=== PATIENT | female | born 1945 | race Caucasian/White ===

== ENCOUNTER 2022-02-03 18:39 | Emergency (ER) | payer OTHER ==
[~2022-02-03] VITALS: Ht 162.6 cm; Wt 70.3 kg
[2022-02-03 19:28] VITALS: BP_SYST 108
--- NOTE | 2022-02-03 19:30 | NUR ---
PATIENT STATES SHE NOTED SWELLING TO RIGHT LOWER LEG X 5 DAYS. HURTS TO WALK, SWELLING NOTED TO CALF AND ANKLE. NO SWELLING ON LEFT FOOT. NO HISTORY OF CHF.
--- NOTE | 2022-02-03 22:14 | NUR ---
Patient to ER bed 04 to gown for evaluation. Side rails up.
--- NOTE | 2022-02-03 22:45 | NUR ---
NICKOL[facility] RN PT AMB WITH TRIAGE NURSE TO BED #4. REPORT FROM JACQUELYN ROBERTSON. PT C/O RLE SELLING/ PAIN X5 DAYS. GETTING WORSE. NO MEDS AT HOME.
[2022-02-04 00:32] VITALS: BP_SYST 203
--- NOTE | 2022-02-04 00:35 | NUR ---
PT STABLE FOR D/C TO HOME. TO CAR AMB WITH STEADY AND EVEN GAIT WITH ALL PAPERWORK IN HAND. [facility] DR. RAMÍREZ MADE AWARE. PT WILL TAKE HER OWN RX AT HOME
== END 2022-02-04 00:32 | disposition home or self-care (01) ==
LOC: SED 18:39
DX: M19.071 Primary osteoarthritis, right ankle and foot (principal); E11.29 Type 2 diabetes mellitus with other diabetic kidney complication; N28.9 Disorder of kidney and ureter, unspecified; I10 Essential (primary) hypertension; Z79.899 Other long term (current) drug therapy
CPT/HCPCS: 73590-TC; 93971; 99284

== ENCOUNTER 2022-08-19 08:47 | Inpatient (IN) | payer OTHER ==
[~2022-08-19] VITALS: Ht 162.6 cm; Wt 63.5 kg
[2022-08-19 08:50] VITALS: BP_SYST 177
[2022-08-19] MEDS ORDERED: NACL 0.9% 1,000 ML IV ONE (10:00)
[2022-08-19 10:01] LABS: BASOPHILS # (AUTO) 0.1 K/uL (0.0-0.2); BASOPHILS % (AUTO) 0.8 % (0.0-2.0); EOSINOPHILS # (AUTO) 0.2 K/uL (0.0-0.4); EOSINOPHILS % (AUTO) 2.1 % (0.0-4.0); HEMATOCRIT 33.6 % (36-48); HEMOGLOBIN 11.3 g/dL (12.0-16.0); LYMPHOCYTES % (AUTO) 12.3 % (20.5-51.5); MEAN CORPUSCULAR HEMOGLOBIN 31 pg (27-31); MEAN CORPUSCULAR HGB CONC 34 % (32-36); MEAN CORPUSCULAR VOLUME 92 fL (79.0-98.0); MONOCYTES # (AUTO) 0.5 K/uL (0.0-1.0); MONOCYTES % (AUTO) 6.4 % (1.7-9.3); NEUTROPHILS # (AUTO) 6.5 K/uL (1.8-7.7); NEUTROPHILS % (AUTO) 78.4 % (40.0-70.0); PLATELET COUNT (AUTO) 220 K/uL (130-430); RED BLOOD CELL COUNT(AUTO) 3.65 MIL/uL (4.2-6.2); RED CELL DISTRIBUTION WIDTH 13.9 % (9.0-15.0); WHITE BLOOD COUNT (AUTO) 8.3 K/uL (4.8-10.8)
[2022-08-19 10:10] LABS: ANION GAP 11 (5-15); CHLORIDE 101 mmol/L (98-107); CREATININE 2.94 mg/dL (0.55-1.30); GLUCOSE 209 mg/dL (70-99); UREA NITROGEN, BLOOD 40 mg/dL (8-21)
[2022-08-19 10:16] LABS: ALANINE AMINOTRANSFERASE 19 U/L (12-78); ALBUMIN 3.7 g/dL (3.4-4.8); ASPARTATE AMINOTRANSFERASE 26 U/L (10-37); TOTAL BILIRUBIN 0.4 mg/dL (0.0-1.0)
[2022-08-19 10:24] LABS: BILIRUBIN,URINE NEGATIVE (NEGATIVE); COLOR,URINE YELLOW (YELLOW); GLUCOSE,URINE NEGATIVE (NEGATIVE); KETONES,URINE NEGATIVE (NEGATIVE); LEUKOCYTE ESTERASE ,URINE NEGATIVE (NEGATIVE); NITRITE, URINE NEGATIVE (NEGATIVE); PROTEIN URINE 2+ (NEGATIVE); UROBILINOGEN,URINE 0.2 (0.2-1.0)
[2022-08-19 10:40] LABS: BLOOD, URINE TRACE (NEGATIVE); CLARITY/URINE SLIGHTLY HAZY (CLEAR)
[2022-08-19 10:48] LABS: BACTERIA,URINE FEW /HPF (None Seen); RBC,URINE 0-3 /HPF (0-3); WBC,URINE NONE SEEN /HPF (0-3)
[2022-08-19] MEDS ORDERED: DEXTROSE 50% JECT 50 ML DISP.SYRIN IVP PRN (12:45)
[2022-08-19] MEDS ORDERED: D5W 1,000 ML IV PRN (12:45)
[2022-08-19] MEDS ORDERED: NACL 0.9% 1,000 ML IV SCH (12:45)
[2022-08-19] MEDS ORDERED: GLUCOSE (DEXTROSE) ORAL GEL -Adults PO PRN (12:45)
[2022-08-19] MEDS ORDERED: ONDA-8 TL (14:13)
[2022-08-19] MEDS ORDERED: CIPR500T5 PO (14:13)
[2022-08-19] MEDS ORDERED: ROSU20TA2 PO (14:13)
[2022-08-19] MEDS ORDERED: ASA81 PO (14:13)
[2022-08-19] MEDS ORDERED: PRO20 PO (14:13)
[2022-08-19] MEDS ORDERED: GABA-529 PO (14:13)
[2022-08-19] MEDS ORDERED: LEVO88TA5 PO (14:13)
[2022-08-19] MEDS ORDERED: IRBE75TA29 PO (14:13)
[2022-08-19] MEDS ORDERED: INSU100V SQ (14:15)
[2022-08-19 17:45] VITALS: BP_SYST 171
[2022-08-19 20:00] VITALS: BP_SYST 141
[2022-08-19] MEDS: GABAPENTIN 100 MG CAPSULE PO SCH (20:06)
[2022-08-19] MEDS: ATORVASTATIN 20 MG TABLET PO SCH (20:06)
[2022-08-19] MEDS ORDERED: ROSUVASTATIN CALCIUM 5 MG/TAB (CRESTOR) PO SCH (21:00)
[2022-08-20] VITALS: BP_SYST 137
[2022-08-20] MEDS: NACL 0.9% 1,000 ML IV SCH ×2 (00:34→17:10)
[2022-08-20] MEDS: LEVOTHYROXINE SODIUM 0.088 MG TABLET PO SCH (04:39)
[2022-08-20] MEDS: ASPIRIN 81 MG TAB.CHEW PO SCH (05:23)
[2022-08-20 06:59] LABS: BASOPHILS # (AUTO) 0.1 K/uL (0.0-0.2); BASOPHILS % (AUTO) 1.1 % (0.0-2.0); EOSINOPHILS # (AUTO) 0.3 K/uL (0.0-0.4); EOSINOPHILS % (AUTO) 3.4 % (0.0-4.0); HEMATOCRIT 30.8 % (36-48); HEMOGLOBIN 10.5 g/dL (12.0-16.0); LYMPHOCYTES # (AUTO) 2.3 K/uL (1.0-5.5); LYMPHOCYTES % (AUTO) 29.2 % (20.5-51.5); MEAN CORPUSCULAR HEMOGLOBIN 31 pg (27-31); MEAN CORPUSCULAR HGB CONC 34 % (32-36); MEAN CORPUSCULAR VOLUME 91 fL (79.0-98.0); MONOCYTES # (AUTO) 0.7 K/uL (0.0-1.0); MONOCYTES % (AUTO) 8.7 % (1.7-9.3); NEUTROPHILS # (AUTO) 4.5 K/uL (1.8-7.7); NEUTROPHILS % (AUTO) 57.6 % (40.0-70.0); PLATELET COUNT (AUTO) 215 K/uL (130-430); RED BLOOD CELL COUNT(AUTO) 3.38 MIL/uL (4.2-6.2); RED CELL DISTRIBUTION WIDTH 14.2 % (9.0-15.0); WHITE BLOOD COUNT (AUTO) 7.9 K/uL (4.8-10.8)
[2022-08-20 07:19] LABS: ALANINE AMINOTRANSFERASE 21 U/L (12-78); ALBUMIN 3.3 g/dL (3.4-4.8); ANION GAP 13 (5-15); ASPARTATE AMINOTRANSFERASE 20 U/L (10-37); CALCIUM 8.4 mg/dL (8.4-11.0); CHLORIDE 108 mmol/L (98-107); CREATININE 2.58 mg/dL (0.55-1.30); GLUCOSE 155 mg/dL (70-99); TOTAL BILIRUBIN 0.4 mg/dL (0.0-1.0); UREA NITROGEN, BLOOD 35 mg/dL (8-21)
[2022-08-20 08:00] VITALS: BP_SYST 125
[2022-08-20] MEDS ORDERED: IRBESARTAN 150 MG TABLET (AVAPRO) PO SCH (09:00)
[2022-08-20] MEDS: CIPROFLOXACIN HCL 500 MG TABLET PO SCH (09:13)
[2022-08-20] MEDS: GABAPENTIN 100 MG CAPSULE PO SCH ×3 (09:13→20:17)
[2022-08-20] MEDS: FLUoxetine HCL 20 MG CAPSULE (PROzac) PO SCH (09:13)
[2022-08-20] MEDS: LOSARTAN POTASSIUM 25 MG TABLET PO SCH (09:14)
[2022-08-20 11:25] VITALS: BP_SYST 147
[2022-08-20] MEDS ORDERED: ONDANSETRON HCL 4 MG/2 ML VIAL IM PRN (12:15)
[2022-08-20] MEDS ORDERED: INSULIN REGULAR, HUMAN 10 UNITS/0.1 ML, 3 ML VIAL SUBCUT PRN (12:15)
[2022-08-20] MEDS ORDERED: CLOP75TA32 PO (16:10)
[2022-08-20] MEDS ORDERED: CLOPIDOGREL BISULFATE 75 MG TABLET PO ONE (16:30)
[2022-08-20 17:27] VITALS: BP_SYST 151
[2022-08-20 20:00] VITALS: BP_SYST 145
[2022-08-20] MEDS: ATORVASTATIN 20 MG TABLET PO SCH (20:16)
[2022-08-20] MEDS: INSULIN REGULAR, HUMAN 100 UNITS/ML, 3 ML VIAL (humuLIN R) SUBCUT PRN (21:13)
[2022-08-21 00:05] VITALS: BP_SYST 141
[2022-08-21] MEDS: LEVOTHYROXINE SODIUM 0.088 MG TABLET PO SCH (05:14)
[2022-08-21 08:00] VITALS: BP_SYST 147
[2022-08-21] MEDS ORDERED: CLOPIDOGREL BISULFATE 75 MG TABLET PO SCH (09:00)
[2022-08-21] MEDS: LOSARTAN POTASSIUM 25 MG TABLET PO SCH (10:58)
[2022-08-21] MEDS: CIPROFLOXACIN HCL 500 MG TABLET PO SCH (10:59)
[2022-08-21] MEDS: GABAPENTIN 100 MG CAPSULE PO SCH ×2 (10:59→15:13)
[2022-08-21] MEDS: ASPIRIN 81 MG TAB.CHEW PO SCH (10:59)
[2022-08-21] MEDS: FLUoxetine HCL 20 MG CAPSULE (PROzac) PO SCH (11:00)
[2022-08-21] MEDS: NACL 0.9% 1,000 ML IV SCH (12:06)
[2022-08-21] MEDS: INSULIN REGULAR, HUMAN 100 UNITS/ML, 3 ML VIAL (humuLIN R) SUBCUT PRN (12:14)
[2022-08-21] MEDS ORDERED: TAMS-11 PO (12:16)
[2022-08-21 13:58] VITALS: BP_SYST 157
[2022-08-21 16:28] VITALS: BP_SYST 157
[2022-08-21 17:06] VITALS: BP_SYST 160
== END 2022-08-21 17:00 | disposition home health service (06) | DRG 699 ==
LOC: SED 08:47 → SMU 12:34
PROVIDERS: ADMIT Family Medicine; ATTEND Family Medicine
PROC: 0T9B70Z Drainage of Bladder with Drainage Device, Via Natural or Artificial Opening (ICD-10-PCS; principal; 2022-08-20)
DX: N13.9 Obstructive and reflux uropathy, unspecified (principal); N17.9 Acute kidney failure, unspecified; N18.4 Chronic kidney disease, stage 4 (severe); N31.9 Neuromuscular dysfunction of bladder, unspecified; M48.061 Spinal stenosis, lumbar region without neurogenic claudication; I12.9 Hypertensive chronic kidney disease with stage 1 through stage 4 chronic kidney disease, or unspecified chronic kidney disease; Z20.822 Contact with and (suspected) exposure to COVID-19; E11.22 Type 2 diabetes mellitus with diabetic chronic kidney disease; Z79.82 Long term (current) use of aspirin; Z79.899 Other long term (current) drug therapy
CPT/HCPCS: 36415; 70551; 72148; 76770; 80053; 81000; 82962; 85025; 96360; 97110-GP; 97116-GP; 97530-GP; 99285; J1815; J2405

== ENCOUNTER 2022-12-10 17:06 | Emergency (ER) | payer OTHER ==
[~2022-12-10] VITALS: Ht 162.6 cm; Wt 72.6 kg
[~2022-12-10 17:06] MED LIST: ASA81 PO; CLOP75TA32 PO; GABA-529 PO; INSU100V SQ; IRBE75TA29 PO; LEVO88TA5 PO; ONDA-8 TL; PRO20 PO; ROSU20TA2 PO; TAMS-11 PO
[2022-12-10 17:22] VITALS: BP_SYST 144
[2022-12-10 18:01] LABS: BASOPHILS # (AUTO) 0.1 K/uL (0.0-0.2); BASOPHILS % (AUTO) 1.4 % (0.0-2.0); EOSINOPHILS # (AUTO) 0.3 K/uL (0.0-0.4); EOSINOPHILS % (AUTO) 2.9 % (0.0-4.0); HEMATOCRIT 32.8 % (36-48); HEMOGLOBIN 10.9 g/dL (12.0-16.0); LYMPHOCYTES # (AUTO) 2.8 K/uL (1.0-5.5); LYMPHOCYTES % (AUTO) 31.6 % (20.5-51.5); MEAN CORPUSCULAR HEMOGLOBIN 30 pg (27-31); MEAN CORPUSCULAR HGB CONC 33 % (32-36); MEAN CORPUSCULAR VOLUME 91 fL (79.0-98.0); MONOCYTES # (AUTO) 0.7 K/uL (0.0-1.0); MONOCYTES % (AUTO) 7.4 % (1.7-9.3); NEUTROPHILS # (AUTO) 5.1 K/uL (1.8-7.7); NEUTROPHILS % (AUTO) 56.7 % (40.0-70.0); PLATELET COUNT (AUTO) 257 K/uL (130-430); RED BLOOD CELL COUNT(AUTO) 3.61 MIL/uL (4.2-6.2); RED CELL DISTRIBUTION WIDTH 13.8 % (9.0-15.0)
[2022-12-10 18:07] LABS: ANION GAP 10 (5-15); CALCIUM 8.1 mg/dL (8.4-11.0); CHLORIDE 103 mmol/L (98-107); CREATININE 2.68 mg/dL (0.55-1.30); GLUCOSE 240 mg/dL (70-99); UREA NITROGEN, BLOOD 40 mg/dL (8-21)
[2022-12-10 18:15] LABS: ALANINE AMINOTRANSFERASE 29 U/L (12-78); ALBUMIN 3.5 g/dL (3.4-4.8); ASPARTATE AMINOTRANSFERASE 13 U/L (10-37); TOTAL BILIRUBIN 0.3 mg/dL (0.0-1.0)
[2022-12-10] MEDS ORDERED: ACET-2634 PO (21:07)
[2022-12-10 21:44] VITALS: BP_SYST 139
== END 2022-12-10 21:44 | disposition home or self-care (01) ==
LOC: SED 17:06
DX: S01.81XA Laceration without foreign body of other part of head, initial encounter (principal); E11.9 Type 2 diabetes mellitus without complications; I10 Essential (primary) hypertension; Z91.011 Allergy to milk products; Z79.4 Long term (current) use of insulin; Z79.899 Other long term (current) drug therapy; W06.XXXA Fall from bed, initial encounter; Y93.89 Activity, other specified; Y92.89 Other specified places as the place of occurrence of the external cause; Y99.8 Other external cause status
CPT/HCPCS: 36415; 70450-TC; 70486-TC; 76376; 80053; 84484; 85025; 93005; 99284